=== PATIENT | female | born 1950 | race Caucasian/White ===

== ENCOUNTER 2016-11-08 10:06 | Outpatient (CLI) | payer MEDICARE ==
[2016-11-08 10:35] LABS: #Eosinphils 0.1 thou/uL (0.0-0.7); #Lymphocytes 0.8 thou/uL (1.20-3.40); #Monocytes 0.3 thou/uL (0.11-0.59); #Neutrophils 2.6 thou/uL (1.40-6.50); %Basophils 1.2 % (0.0-1.0); %Eosinophils 2.5 % (0.0-10.0); %Lymphocytes 20.3 % (21.0-51.0); %Monocytes 7.9 % (0.0-10.0); %Neutrophils 68.3 % (42.0-75.0); Hemoglobin 9.2 g/dL (12.0-16.0); Mean Corpuscular Hemoglobin 32.9 pg (27.0-31.0); Mean Corpuscular Volume 99.8 fl (81.0-99.0); Mean Platelet Volume 7.8 fL (7.4-10.4); Platelet Count 190 thou/uL (130-400); RBC Distribution Width 13.4 % (11.5-14.5); Red Blood Cell (RBC) Count 2.79 mill/uL (4.20-5.40); White Blood Cell (WBC) Count 3.8 thou/uL (4.8-10.8)
[2016-11-08 11:14] LABS: Anion Gap 15 mmol/L (10-20); BUN (Urea Nitrogen) 48 mg/dL (9.8-20.1); Calc. Creatinine Clearance 0 mL/min (70-130); Calcium 9.2 mg/dL (7.8-10.44); Carbon Dioxide 28 mmol/L (23-31); Chloride 102 mmol/L (98-107); Estimated GFR-MDRD 19; Glucose 109 mg/dL (80-115); Phosphorus 4.3 mg/dL (2.3-4.7); Potassium 4.2 mmol/L (3.5-5.1); Sodium 141 mmol/L (136-145)
== END 2016-11-08 10:07 | disposition home or self-care (01) ==
LOC: MADLAB 10:06
PROVIDERS: ATTEND Internal Medicine Nephrology
DX: N18.4 Chronic kidney disease, stage 4 (severe) (principal)
CPT/HCPCS: 36415; 80048; 83970; 84100; 85025

== ENCOUNTER 2016-12-08 09:54 | Outpatient (CLI) | payer MEDICARE ==
[2016-12-08 10:32] LABS: Cardiac Risk 4.9 (Less than 4.5)
== END 2016-12-08 09:55 | disposition home or self-care (01) ==
LOC: MADLAB 09:54
PROVIDERS: ATTEND Internal Medicine Cardiovascular Disease
DX: E78.5 Hyperlipidemia, unspecified (principal)
CPT/HCPCS: 36415; 80061

== ENCOUNTER 2021-02-26 09:52 | Outpatient (CLI) | payer MEDICARE ==
[2021-02-26 11:06] LABS: Carbon Dioxide 21 mmol/L (23-31); Chloride 111 mmol/L (98-107); Sodium 146 mmol/L (136-145)
[2021-02-26 11:07] LABS: Anion Gap 18 mmol/L (10-20); BUN (Urea Nitrogen) 79 mg/dL (9.8-20.1); Calc. Creatinine Clearance 0 mL/min (70-130); Calcium 9.6 mg/dL (7.8-10.44); Glucose 108 mg/dL (83-110)
== END 2021-02-26 09:53 | disposition home or self-care (01) ==
LOC: MADLAB 09:52
PROVIDERS: ATTEND Nurse Practitioner Family
DX: I50.30 Unspecified diastolic (congestive) heart failure (principal)
CPT/HCPCS: 80048; 83735; 83880

== ENCOUNTER 2021-04-16 09:07 | Outpatient (CLI) | payer MEDICARE ==
[2021-04-16 09:46] LABS: Anion Gap 14 mmol/L (10-20); BUN (Urea Nitrogen) 89 mg/dL (9.8-20.1); Calc. Creatinine Clearance 0 mL/min (70-130); Calcium 9.2 mg/dL (7.8-10.44); Carbon Dioxide 26 mmol/L (23-31); Chloride 109 mmol/L (98-107); Glucose 110 mg/dL (83-110); Magnesium 2.2 mg/dL (1.6-2.6); Potassium 3.9 mmol/L (3.5-5.1); Sodium 145 mmol/L (136-145)
== END 2021-04-16 09:08 | disposition home or self-care (01) ==
LOC: MADLAB 09:07
PROVIDERS: ATTEND Nurse Practitioner Family
DX: I50.30 Unspecified diastolic (congestive) heart failure (principal)
CPT/HCPCS: 36415; 80048; 83735; 83880

== ENCOUNTER 2021-07-07 09:18 | Emergency (ER) | payer MEDICARE ==
[2021-07-07 09:44] LABS: #Basophils 0.1 thou/uL (0.0-0.2); #Lymphocytes 0.4 thou/uL (1.20-3.40); #Monocytes 0.5 thou/uL (0.11-0.59); #Neutrophils 9.5 thou/uL (1.40-6.50); %Basophils 0.7 % (0.0-1.0); %Eosinophils 0.5 % (0.0-10.0); %Monocytes 4.6 % (0.0-10.0); %Neutrophils 90.3 % (42.0-75.0); Hemoglobin 9.2 g/dL (12.0-16.0); Mean Corpuscular HGB CONC 31.7 g/dL (32.0-36.0); Mean Corpuscular Hemoglobin 32.4 pg (27.0-31.0); Mean Platelet Volume 6.6 fL (7.4-10.4); Platelet Count 235 thou/uL (130-400); RBC Distribution Width 15.9 % (11.5-14.5); Red Blood Cell (RBC) Count 2.83 mill/uL (4.20-5.40); White Blood Cell (WBC) Count 10.6 thou/uL (4.8-10.8)
[2021-07-07] MEDS ORDERED: Ketorolac Tromethamine 30 MG/ML VIAL ONE (10:00)
[2021-07-07] MEDS ORDERED: methylPREDNISolone Sod Succ/PF 125 MG/2 ML VIAL ONE (10:00)
[2021-07-07 10:04] LABS: ALT (SGPT) 13 U/L (8-55); AST (SGOT) 29 U/L (5-34); Albumin 3.9 g/dL (3.4-4.8); Alkaline Phosphatase 96 U/L (40-110); Anion Gap 19 mmol/L (10-20); BUN (Urea Nitrogen) 65 mg/dL (9.8-20.1); Bilirubin, Total 0.6 mg/dL (0.2-1.2); Calc. Creatinine Clearance 0 mL/min (70-130); Calcium 8.9 mg/dL (7.8-10.44); Carbon Dioxide 25 mmol/L (23-31); Chloride 100 mmol/L (98-107); Globulin 3.3 g/dL (2.4-3.5); Glucose 140 mg/dL (83-110); Magnesium 1.9 mg/dL (1.6-2.6); Potassium 4.4 mmol/L (3.5-5.1); Protein, Total 7.2 g/dL (5.8-8.1); Sodium 140 mmol/L (136-145)
[2021-07-07 10:21] LABS: CKMB 0.4 ng/mL (0-6.6)
[2021-07-07 10:24] LABS: Bilirubin Negative (Negative); Blood, Urine Negative (Negative); Clarity Clear (Clear); Glucose, Urine (Dipstick) Negative (Negative); Ketone, Urine Negative (Negative); Leukocyte Small (Negative); Nitrite Negative (Negative); Protein, Urine (Dipstick) Trace mg/dL (Neg-Trace); Urobilinogen 0.2 mg/dL (Less than 2)
[2021-07-07 10:36] LABS: Bacteria/HPF Rare-Few HPF (None Seen); RBC/HPF 0-3 HPF (0-3)
[2021-07-07 11:08] LABS: SARS-CoV-2 NAA Rapid Test Not Detected (NotDetected)
[2021-07-07 11:47] LABS: Base Excess-Venous 3.9 mmol/L (-2.0 to 3.0); Bicarbonate (HCO3v) 28.8 mmol/L (22.0-28.0); CO2 Tension (PvCO2) 43.8 mmHg (42.0-51.0); Calcium, Ionized 1.09 mmol/L (1.15-1.33); Chloride 101 mmol/L (98-107); Hemoglobin - Calc 9.9 g/dL (12.0-16.0); Potassium 4.1 mmol/L (3.5-5.1); Sodium 140 mmol/L (138-145); T. Carbon Dioxide 30.1 mmol/L (22.0-28.0); vO2 Saturation-calc 68.6 % (60.0-85.0)
[2021-07-07] MEDS ORDERED: Azithromycin 500 MG VIAL ONE (12:01)
[2021-07-07] MEDS ORDERED: Sodium Chloride 0.9% 100 ML ONE (12:01)
[2021-07-07] MEDS ORDERED: cefTRIAXone\\ROCEPHIN 1 GM VIAL ONE (12:01)
[2021-07-07] MEDS ORDERED: Sodium Chloride 0.9% 250 ML 250 ML ONE (12:01)
[2021-07-07 15:17] LABS: Troponin I 0.108 ng/mL (< 0.028)
== END 2021-07-07 20:00 | disposition short-term general hospital (02) ==
LOC: MADERS 09:18
DX: A41.9 Sepsis, unspecified organism (principal); J18.9 Pneumonia, unspecified organism; I45.2 Bifascicular block; R77.8 Other specified abnormalities of plasma proteins; I13.0 Hypertensive heart and chronic kidney disease with heart failure and stage 1 through stage 4 chronic kidney disease, or unspecified chronic kidney disease; N18.4 Chronic kidney disease, stage 4 (severe); I50.9 Heart failure, unspecified; E03.9 Hypothyroidism, unspecified; E78.5 Hyperlipidemia, unspecified; E78.00 Pure hypercholesterolemia, unspecified; J44.9 Chronic obstructive pulmonary disease, unspecified; M19.90 Unspecified osteoarthritis, unspecified site; Z20.822 Contact with and (suspected) exposure to COVID-19; Z87.891 Personal history of nicotine dependence; Z79.899 Other long term (current) drug therapy
CPT/HCPCS: 0240U; 71045; 71250; 80053; 82330; 82435; 82553; 82803; 83605; 83735; 83880; 84132; 84295; 84484 ×2; 85014; 85025; 87040; 87077; 87086; 87186; 93005; 36415; 81003; 81015; 96365; 96367; 96375; J0456; J0696; J1885; J2930; J3490; J7050

== ENCOUNTER 2025-04-21 19:52 | Emergency (ER) | payer MEDICARE | END 2025-04-21 21:05 | disposition home or self-care (01) | LOC: MADERS 19:52 | DX: K64.9 Unspecified hemorrhoids (principal); I13.0 Hypertensive heart and chronic kidney disease with heart failure and stage 1 through stage 4 chronic kidney disease, or unspecified chronic kidney disease; I50.9 Heart failure, unspecified; N18.4 Chronic kidney disease, stage 4 (severe); I48.91 Unspecified atrial fibrillation; E03.9 Hypothyroidism, unspecified; K21.9 Gastro-esophageal reflux disease without esophagitis; E78.5 Hyperlipidemia, unspecified; Z87.891 Personal history of nicotine dependence; Z79.01 Long term (current) use of anticoagulants; Z79.890 Hormone replacement therapy; Z79.899 Other long term (current) drug therapy | CPT/HCPCS: 99283 ==